=== PATIENT | female | born 1960 | race Caucasian/White ===

== ENCOUNTER 2016-10-15 15:36 | Emergency (ER) | payer MEDICARE, OTHER ==
--- NOTE | 2016-10-15 16:56 | ED Physician Documentation ---
Lower Extremity Injury - HISTORIAN Historian: patient - HPI Stated Complaint: Right Knee Pain s/p Fall Chief Complaint: Lower Extremity Injury Onset: days ago (10/06/16 - fall) Context: fall Modifying Factors:: pain on movement - ROS CONST: no problems CVS/RESP: none GI/: denies: nausea, vomiting MS/SKIN/LYMPH: none NEURO: denies: headache - PAST HX Past History: cardiac (HTN), diabetes Type 2, other (depression, HLD, anxiety, COPD, uses O2, morbid obesity) Allergies/Adverse Reactions: Allergies Allergy/AdvReac Type Severity Reaction Status Date / Time levofloxacin [From Levaquin] Allergy Verified 02/03/16 18:57 Home Medications: Ambulatory Orders Medication Instructions Recorded Escitalopram Oxalate [Lexapro] 20 mg PO D 05/07/12 Furosemide [Furosemide] 80 mg PO BID 05/07/12 Insulin Glargine,Hum.rec.anlog 45 units SQ HS 05/07/12 [Lantus] Montelukast Sodium [Singulair] 10 mg PO HS 05/07/12 Roflumilast [Daliresp] 1 tab PO D 05/07/12 Simvastatin [Simvastatin] 40 mg PO HS 05/07/12 Tolterodine Tartrate 1 mg PO BID 05/07/12 clonazePAM [Clonazepam] 1 mg PO HS 05/07/12 predniSONE [Prednisone] 10 mg PO D 05/07/12 Spironolactone [Aldactone] 50 mg PO BID 11/10/12 Insulin Aspart [Novolog Flexpen] 50 unit SQ TID 09/20/15 Levalbuterol HCl [Xopenex] 1.25 mg NEB QID PRN 09/20/15 Ipratropium/Albuterol Sulfate 3 ml NEB QID 10/15/16 [Duoneb] Ketorolac Tromethamine [Toradol] 10 mg PO TID #15 tablet 10/15/16 Umeclidinium Brm/Vilanterol Tr 1 each IH DAILY 10/15/16 [Anoro Ellipta 62.5-25 Mcg INH] - SOCIAL HX Smoking History: non-smoker - FAMILY HX Family History: denies: none - VITAL SIGNS Vital Signs: Vital Signs Temp Pulse Resp BP Pulse Ox 97 F L 105 H 20 144/101 97 10/15/16 15:40 10/15/16 15:40 10/15/16 15:40 10/15/16 15:40 10/15/16 15:40 - REVIEWED ASSESSMENTS Nursing Assessment Reviewed: Yes Vitals Reviewed: Yes Progress - Progress Progress: Patient with morbid obesity. Will try 5 days of NSAIDs. Instructed to follow up with PCP or ortho if pain persists or does not improve. Cast on right wrist from fall. ED Results Lab/Radiology - Orders Orders: ED Orders Category Date Time Status Rasheed Wrap Affected Extremity 1T Care 10/15/16 17:13 Active KNEE 3 VIEWS [RAD] Stat Exams 10/15/16 15:53 Taken Ketorolac Tromethamine [Toradol] Med 10/15/16 16:45 Discontinued 60 mg IM NOW ONE Lower Extremities Injury Phy - Physical Exam General Appearance: moderate distress Knees: right: pain, soft tissue tenderness, other (morbid obesity, sitting in wheelchair; will not walk due to pain), left: non-tender, normal inspection, N/A : swelling (no edema) Ankle: bilateral: non-tender, normal inspection, normal range of motion, no evidence of injury Ligaments: No: pain on anterior drawer, laxity on anterior drawer, laxity on posterior drawe, laxity on medial stress Gait: unable to bear weight Neuro/Vascular/Tendon: no vascular compromise, motor nml, sensation nml, ROM nml Discharge Clincal Impression: Strain of right knee Qualifiers: Encounter type: initial encounter Qualified Code(s): S86.911A - Strain of unspecified muscle(s) and tendon(s) at lower leg level, right leg, initial encounter Prescriptions: Ketorolac Tromethamine [Toradol] 10 mg PO TID #15 tablet Referrals: Poonam Hare, PRN [Primary Care Provider] - 2 Days Additional Instructions: Rest ice elevation Follow up with PCP or ortho if no improvements. Home Medications: Ambulatory Orders Escitalopram Oxalate [Lexapro] 20 mg PO D 05/07/12 Furosemide [Furosemide] 80 mg PO BID 05/07/12 Insulin Glargine,Hum.rec.anlog [Lantus] 45 units SQ HS 05/07/12 Montelukast Sodium [Singulair] 10 mg PO HS 05/07/12 Roflumilast [Daliresp] 1 tab PO D 05/07/12 Simvastatin [Simvastatin] 40 mg PO HS 05/07/12 Tolterodine Tartrate 1 mg PO BID 05/07/12 clonazePAM [Clonazepam] 1 mg PO HS 05/07/12 predniSONE [Prednisone] 10 mg PO D 05/07/12 Spironolactone [Aldactone] 50 mg PO BID 11/10/12 Insulin Aspart [Novolog Flexpen] 50 unit SQ TID 09/20/15 Levalbuterol HCl [Xopenex] 1.25 mg NEB QID PRN 09/20/15 Ipratropium/Albuterol Sulfate [Duoneb] 3 ml NEB QID 10/15/16 Ketorolac Tromethamine [Toradol] 10 mg PO TID #15 tablet 10/15/16 Umeclidinium Brm/Vilanterol Tr [Anoro Ellipta 62.5-25 Mcg INH] 1 each IH DAILY 10/15/16 Condition: Stable Disposition: 01 HOME, SELF-CARE Decision to Admit: NO Decision Time: 17:31
[2016-10-15] MEDS: KETOROLAC TROMETHAMINE 60 MG/2 ML VIAL IM ONE (17:22)
[2016-10-15] MEDS ORDERED: MUPIROCIN 2% OINT 22GM TUBE TP ONE (17:38)
[2016-10-15 17:39] VITALS: BP 138/98
--- NOTE | 2016-10-15 18:55 | Diagnostic Imaging Report ---
TREVA STERLING (DIRECTOR OF CONSUMER AFFAIRS) - ER [facility] [address] [facility].[address] [address] Report Submission Date: Oct 15, 2016 4:55:35 PM CDT Patient Study Name: ZHANG RUEDA Date: Oct 15, 2016 4:21:57 PM CDT Modality Type: CR Gender: F Description: LOWER EXTREMITY : 56 Institution: [facility] Physician: TREVA STERLING ([place]) - ER Examination: Plain film knee History: Knee discomfort Findings: 3 views of the knee demonstrates normal cortical margins. Artifactual lucency projecting over the proximal tibia. No fracture. No dislocation. Medial joint space narrowing and osteophyte formation. No joint effusion. No soft tissue irregularity. Impression: Medial degenerative changes. No acute osseous abnormality. If suspect soft tissue abnormality/injury, consider obtaining MRI Electronically signed on Oct 15, 2016 4:55:35 PM CDT by: Claudio BROWNING
== END 2016-10-15 17:35 | disposition home or self-care (01) ==
LOC: ED 15:36
DX: S86.911A Strain of unspecified muscle(s) and tendon(s) at lower leg level, right leg, initial encounter (principal); X58.XXXA Exposure to other specified factors, initial encounter; Y93.9 Activity, unspecified; Y99.9 Unspecified external cause status
CPT/HCPCS: 73562; J1885; 96372; 99283

== ENCOUNTER 2017-03-20 19:50 | Emergency (ER) | payer MEDICARE, OTHER ==
--- NOTE | 2017-03-20 20:25 | ED Physician Documentation ---
Syncope/Near Syncope - HISTORIAN Historian: patient, child - HPI Stated Complaint: low blood sugar Chief Complaint: Syncope Additional Information: pt sitting at home near syncope-later found fsbs 60s-ate chocolate candy then better. had recently inc lentus insulin from 60 to 70 at hs Witnessed: Yes Witnessed By: family Position at Time of Episode: sitting Symptoms Prior to Episode: light-headed, visual disturbance Character of Events(s): became unresponsive Symptoms after Event: denies: confused after event, incontinent of urine, incontinent of stool Location of Injury: none Associated Symptoms: feels back to normal Further Comments: yes (ecg by ems=ok fsbs ems = 60 here 79) - ROS CONST: denies: recent illness EYES/ENT: none NEURO/PSYCH: depression ( 1 yr ago). denies: confusion - PAST HX Cardiac Disease: none Other History: diabetes Type 1 (chf copd hi chol) Surgeries/Procedures: other (card cath cataracts exp for uterine hemorrhage) Allergies/Adverse Reactions: Allergies Allergy/AdvReac Type Severity Reaction Status Date / Time levofloxacin [From Levaquin] Allergy Verified 03/20/17 20:14 Home Medications: Ambulatory Orders Medication Instructions Recorded Escitalopram Oxalate [Lexapro] 20 mg PO D 05/07/12 Furosemide [Furosemide] 80 mg PO BID 05/07/12 Insulin Glargine,Hum.rec.anlog 60 units SQ HS 05/07/12 [Lantus] Roflumilast [Daliresp] 1 tab PO D 05/07/12 Simvastatin [Simvastatin] 40 mg PO HS 05/07/12 Tolterodine Tartrate 1 mg PO BID 05/07/12 clonazePAM [Clonazepam] 1 mg PO HS 05/07/12 predniSONE [Prednisone] 10 mg PO D 05/07/12 Spironolactone [Aldactone] 50 mg PO BID 11/10/12 Insulin Aspart [Novolog Flexpen] 50 unit SQ TID 09/20/15 Levalbuterol HCl [Xopenex] 1.25 mg NEB QID PRN 09/20/15 Ipratropium/Albuterol Sulfate 3 ml NEB QID 10/15/16 [Duoneb] Umeclidinium Brm/Vilanterol Tr 1 each IH DAILY 10/15/16 [Anoro Ellipta 62.5-25 Mcg INH] - SOCIAL HX Smoking History: non-smoker Alcohol Use: none Drug Use: none - FAMILY HX Family History: none ( 1 yr ago pt very depressed since dthen no desire to live xc children) - VITAL SIGNS Vital Signs: Vital Signs Temp Pulse Resp BP Pulse Ox 98.2 F 97 H 20 138/72 98 03/20/17 19:50 03/20/17 19:50 03/20/17 19:50 03/20/17 19:50 03/20/17 19:50 - REVIEWED ASSESSMENTS Nursing Assessment Reviewed: Yes Vitals Reviewed: Yes ED Results Lab/Radiology - Lab Results Lab Results: Lab Results 03/20/17 03/20/17 20:30 20:30 WBC 17.10 K/ul H K/ul (4.00-12.00) RBC 5.07 M/ul M/ul (3.90-5.20) Hgb 15.1 g/dL g/dL (12.0-16.0) Hct 46.9 % H % (34.5-46.5) MCV 92.4 fl fl (80.0-100.0) MCH 29.9 pg pg (28.0-34.0) MCHC 32.3 g/dL g/dL (30.0-36.0) RDW 13.4 % % (11.3-14.3) Plt Count 336 K/mm3 K/mm3 (130-400) Neut % (Auto) 79.9 % H % (39.0-79.0) Lymph % (Auto) 13.2 % L % (16.0-50.0) [place] % (Auto) 2.7 % % (0.0-11.0) Eos % (Auto) 2.8 % % (0.0-6.8) Baso % (Auto) 0.7 (0.0-1.5) Neut # (Auto) 13.6 # k/uL H # k/uL (1.4-7.7) Lymph # (Auto) 2.2 # k/uL # k/uL (0.6-4.0) [place] # (Auto) 0.5 # k/uL # k/uL (0.0-0.9) Eos # (Auto) 0.5 # k/uL # k/uL (0.0-0.6) Baso # (Auto) 0.1 # k/uL # k/uL (0.0-0.5) Reactive Lymphs % 0.7 % % (0.0-5.0) Reactive Lymphs # 0.1 # k/uL # k/uL (0.0-0.8) Sodium 142 mmol/L mmol/L (136-145) Potassium 3.8 mmol/L mmol/L (3.5-5.1) Chloride 97 mmol/L L mmol/L (98-107) Carbon Dioxide 31 mmol/L H mmol/L (22-30) BUN 16 mg/dL mg/dL (7-17) Creatinine 0.80 mg/dL mg/dL (0.52-1.04) Estimated Creat Clear 209 Est GFR ( Amer) > 60 (60 - ) Est GFR (Non-Af Amer) > 60 (60 - ) Glucose 137 mg/dL H mg/dL (74-106) Calcium 9.9 mg/dL mg/dL (8.4-10.2) Total Bilirubin 0.3 mg/dL mg/dL (0.2-1.3) AST 16 U/L U/L (15-46) ALT 25 U/L U/L (13-69) Alkaline Phosphatase 78 U/L U/L (38-126) Total Protein 7.4 g/dL g/dL (6.3-8.2) Albumin 3.9 g/dL g/dL (3.5-5.0) - Orders Orders: ED Orders Category Date Time Status CBC/PLATELET/DIFF Routine Lab 03/20/17 20:30 Completed CMP Routine Lab 03/20/17 20:30 Completed URINALYSIS Routine Lab 03/20/17 Ordered Chem Sticks Med 03/20/17 20:19 Ordered 1 each MC CHEMQ PRN Syncope Physical Exam - Physical Exam General Appearance: mild distress EENT: nml eye inspection Neck/Back: neck supple, no carotid bruit Respiratory: no resp distress, breath sounds normal CVS: reg rate & rhythm, heart sounds normal Abdomen: non-tender Skin: warm/dry, normal color. No: cyanosis, diaphoresis, jaundice, mottled Extremities: non-tender, normal range of motion - Neuro/Psych Higher Functions: alert, oriented x3 Cranial Nerves: denies: pronator drift Sensorimotor: nml motor response, nml sensory response Discharge Clincal Impression: insulin induced hypoglycemia, obesity-depression, chronic back pain Referrals: Poonam Hare PRN [Primary Care Provider] - 2 Days Condition: Good Disposition: 01 HOME, SELF-CARE Decision to Admit: NO Decision Time: 21:36
[2017-03-20 20:38] LABS: BASOPHILS % 0.7 (0.0-1.5); EOSINOPHILS % 2.8 % (0.0-6.8); MEAN CORPUSCULAR HEMOGLOBIN 29.9 pg (28.0-34.0); MEAN CORPUSCULAR VOLUME 92.4 fl (80.0-100.0); MONOCYTES % 2.7 % (0.0-11.0); NEUTROPHILS # 13.6 # k/uL (1.4-7.7)
[2017-03-20 20:51] LABS: eGFR (African) > 60; eGFR (Non-African) > 60
[2017-03-20 21:37] VITALS: BP 132/86
== END 2017-03-20 21:30 | disposition home or self-care (01) ==
LOC: ED 19:50
DX: E11.649 Type 2 diabetes mellitus with hypoglycemia without coma (principal); E66.9 Obesity, unspecified; F32.89 Other specified depressive episodes; M54.9 Dorsalgia, unspecified
CPT/HCPCS: 80053; 85025; 99282

== ENCOUNTER 2017-06-15 15:36 | Emergency (ER) | payer MEDICARE, OTHER ==
--- NOTE | 2017-06-15 15:46 | ED Physician Documentation ---
Lower Extremity Injury - HISTORIAN Historian: patient - HPI Chief Complaint: Lower Extremity Injury Additional Information: 56yo white female who states that she fell off a step to an exam table at [facility] and felt that her left knee isabella medial. Had some swelling and pain and got some better. Yesterday the same type of injury occured when she was trying to get up out of wheelchair. No she is having more pain. It has not given away on her. No previous injury noted. Modifying Factors:: pain on movement - ROS CONST: no problems - PAST HX Past History: diabetes Type 2, other (RA, COPD, CHF, Hyperlipidemia, ) Immunizations: referred to PCP Allergies/Adverse Reactions: Allergies Allergy/AdvReac Type Severity Reaction Status Date / Time levofloxacin [From Levaquin] Allergy Verified 06/25/17 00:24 Home Medications: Ambulatory Orders Medication Instructions Recorded Escitalopram Oxalate [Lexapro] 20 mg PO D 05/07/12 Furosemide [Furosemide] 80 mg PO BID 05/07/12 Insulin Glargine,Hum.rec.anlog 60 units SQ HS 05/07/12 [Lantus] Simvastatin [Simvastatin] 40 mg PO HS 05/07/12 Tolterodine Tartrate 1 mg PO BID 05/07/12 clonazePAM [Clonazepam] 1 mg PO HS 05/07/12 predniSONE [Prednisone] 10 mg PO D 05/07/12 Spironolactone [Aldactone] 50 mg PO BID 11/10/12 Insulin Aspart [Novolog Flexpen] 50 unit SQ TID 09/20/15 Levalbuterol HCl [Xopenex] 1.25 mg NEB QID PRN 09/20/15 Ipratropium/Albuterol Sulfate 3 ml NEB QID 10/15/16 [Duoneb] Meloxicam [Mobic] 7.5 mg PO BID PRN #20 tablet 06/15/17 Montelukast Sodium [Singulair] 1 tab PO HS 06/15/17 Azithromycin 500 mg PO D #4 tablet 06/25/17 Prednisone 10 mg PO TID #30 tablet 06/25/17 - SOCIAL HX Smoking History: quit greater than 1 year (2000) Alcohol Use: other (quit in ) Drug Use: none - FAMILY HX Family History: other (DM) - VITAL SIGNS Vital Signs: Vital Signs Temp Pulse Resp BP Pulse Ox 97.7 F 100 H 16 115/66 97 06/15/17 15:40 06/15/17 15:40 06/15/17 15:40 06/15/17 15:40 06/15/17 15:40 - REVIEWED ASSESSMENTS Nursing Assessment Reviewed: Yes Vitals Reviewed: Yes ED Results Lab/Radiology - Radiology Radiology Impressions: Examination: Plain film left tibia/fibula History: PAIN AFTER FALL (Hx) Comparison exams: None available Findings: 4 views of the tibia fibula demonstrates osteopenia. Articular degenerative changes. Old fracture deformity distal fibula. No evidence for acute fracture line. No soft tissue abnormality. Impression: Osteopenia and degenerative changes. No acute appearing osseous abnormality. Examination: Plain film left knee History: PAIN AFTER FALL (Hx) Findings: 3 views of the left knee demonstrates osteopenia. Patellar and articular spurring. Medial joint space narrowing. No fracture. No dislocation. No joint effusion. No posterior soft tissue irregularity. Impression: Articular degenerative changes. No acute appearing osseous abnormality - Orders Orders: ED Orders Category Date Time Status BILAT TIB/FIB 2 VIEW [RAD] Routine Exams 06/15/17 Ordered KNEE 3 VIEWS [RAD] Stat Exams 06/15/17 Ordered Ketorolac Tromethamine [Toradol] Med 06/15/17 16:00 Discontinued 60 mg IM NOW ONE Lower Extremities Injury Phy - Physical Exam General Appearance: alert Legs: right: non-tender, normal inspection, normal range of motion, no evidence of injury, left: soft tissue tenderness (medial proximal ), N/A: deformity (none ), ecchymosis (none) Knees: right: non-tender, normal inspection, normal range of motion, no evidence of injury, left: joint effusion (mild), pain, soft tissue tenderness ( anterior/inferior knee area), swelling, N/A: ecchymosis (none) Ankle: bilateral: non-tender, normal inspection, normal range of motion, no evidence of injury Ligaments: pain on medial stress. No: laxity on medial stress Gait: limited by pain Neuro/Vascular/Tendon: no vascular compromise, motor nml, sensation nml Resp/CVS: chest non-tender, breath sounds nml, heart sounds nml, no resp. distress, lungs clear, reg. rate & rhythm. No: wheezes, rales, rhonchi Abdomen: non-tender Discharge Clincal Impression: Strain of knee and leg, left Qualifiers: Encounter type: initial encounter Qualified Code(s): S86.912A - Strain of unspecified muscle(s) and tendon(s) at lower leg level, left leg, initial encounter Prescriptions: Meloxicam [Mobic] 7.5 mg PO BID PRN #20 tablet PRN Reason: Pain Referrals: Poonam Hare, TEJAS [Primary Care Provider] - 2 Days Additional Instructions: Wear straight knee immobilizer for support. Take Mobic 7.5 mg twice a day with food. Try using a cool compress tothe knee. Keep ortho appointment as scheduled. Condition: Stable Disposition: 01 HOME, SELF-CARE Decision to Admit: NO Date of Decison to Admit: 06/15/17 Decision Time: 17:19
[2017-06-15 15:48] VITALS: BP 115/66
[2017-06-15] MEDS ORDERED: KETOROLAC TROMETHAMINE 60 MG/2 ML VIAL IM ONE (16:00)
--- NOTE | 2017-06-15 17:30 | Diagnostic Imaging Report ---
PRADIP SILVERIO [facility] [address] [facility].[address] [address] Report Submission Date: Jun 15, 2017 4:58:26 PM CDT Patient Study Name: ZHANG RUEDA Date: Jun 15, 2017 4:11:50 PM CDT Modality Type: DX Gender: F Description: LOWER EXTREMITY : 56 Institution: [facility] Physician: PRADIP SILVERIO Examination: Plain film left tibia/fibula History: PAIN AFTER FALL (Hx) Comparison exams: None available Findings: 4 views of the tibia fibula demonstrates osteopenia. Articular degenerative changes. Old fracture deformity distal fibula. No evidence for acute fracture line. No soft tissue abnormality. Impression: Osteopenia and degenerative changes. No acute appearing osseous abnormality. Electronically signed on Jun 15, 2017 4:58:26 PM CDT by: Claudio BROWNING
--- NOTE | 2017-06-15 17:31 | Diagnostic Imaging Report ---
PRADIP SILVERIO [facility] [address] [facility].[address] [address] Report Submission Date: Jun 15, 2017 4:57:03 PM CDT Patient Study Name: ZHANG RUEDA Date: Jun 15, 2017 3:59:44 PM CDT Modality Type: DX Gender: F Description: LOWER EXTREMITY : 56 Institution: [facility] Physician: PRADIP SILVERIO Examination: Plain film left knee History: PAIN AFTER FALL (Hx) Findings: 3 views of the left knee demonstrates osteopenia. Patellar and articular spurring. Medial joint space narrowing. No fracture. No dislocation. No joint effusion. No posterior soft tissue irregularity. Impression: Articular degenerative changes. No acute appearing osseous abnormality Electronically signed on Jun 15, 2017 4:57:03 PM CDT by: Claudio BROWNING
== END 2017-06-15 17:28 | disposition home or self-care (01) ==
LOC: ED 15:36
DX: S86.912A Strain of unspecified muscle(s) and tendon(s) at lower leg level, left leg, initial encounter (principal); W08.XXXA Fall from other furniture, initial encounter; Y93.89 Activity, other specified; Y92.531 Health care provider office as the place of occurrence of the external cause
CPT/HCPCS: 73562; 73590; J1885; 96372; 99283

== ENCOUNTER 2017-06-25 00:01 | Emergency (ER) | payer MEDICARE, OTHER ==
[2017-06-25] MEDS: IPRATROPIUM/ALBUTEROL SULFATE 3 ML AMPUL.NEB NEB ONE ×2 (00:25→01:45)
[2017-06-25 00:43] LABS: BASOPHILS % 0.3 (0.0-1.5); EOSINOPHILS % 0.2 % (0.0-6.8); MEAN CORPUSCULAR HEMOGLOBIN 29.7 pg (28.0-34.0); MEAN CORPUSCULAR VOLUME 93.9 fl (80.0-100.0); MONOCYTES % 4.7 % (0.0-11.0); NEUTROPHILS # 8.4 # k/uL (1.4-7.7)
[2017-06-25 01:05] LABS: eGFR (African) > 60; eGFR (Non-African) > 60
--- NOTE | 2017-06-25 01:18 | Diagnostic Imaging Report ---
URI MO [facility] [address] [facility].[address] [address] Report Submission Date: Jun 25, 2017 1:14:12 AM CDT Patient Study Name: ZHANG RUEDA Date: Jun 25, 2017 12:50:23 AM CDT Modality Type: DX Gender: F Description: CHEST : 56 Institution: [facility] Physician: URI MO The chest 2 views History: Shortness of breath Findings: The lungs are hyperinflated. Obesity is observed. There is no infiltrate or pleural effusion. The cardiac silhouette is mildly enlarged. Impression: 1. Hyperinflation. 2. Obesity. Electronically signed on Jun 25, 2017 1:14:12 AM CDT by: Jean Pierre BROWNING
[2017-06-25] MEDS: AZITHROMYCIN 250 MG TABLET PO ONE (01:45)
--- NOTE | 2017-06-25 01:50 | ED Physician Documentation ---
Asthma - HISTORIAN Historian: patient, paramedics - HPI Stated Complaint: SOA/FEVER Chief Complaint: Dyspnea Additional Information: [facility] rec neb no other meds w/dx allergies. cond persists severe at times coughs up xs dark greenish thick sputum-also had fever Onset: days ago (several-xs cigs smoked in house w/prts-pts children has same) Duration: continues in ED, worse Initiating Event: upper respiratory illness Associated Symptoms:: fever, trouble breathing, shortness of breath, hurts to breath, productive cough Current Asthma Therapy: albuterol inhaler Further Comments: no - ROS CONST: recent illness EYES/ENT: sore throat (from cough). denies: eye itching CVS: denies: heart racing GI/: denies: abdominal pain, problems urinating, vomiting, nausea MS/SKIN/LYMPH: denies: ankle swelling, leg pain NEURO/PSYCH: headache, dizziness, light-headedness, anxiety - PAST HX Asthma: frequent attacks Lung Disease: COPD, bronchitis Other History: denies: cardiac disease, CHF, CAD Surgeries/Procedures: other (abd exp;elizabeth w/bleeding dt intra abd ) Allergies/Adverse Reactions: Allergies Allergy/AdvReac Type Severity Reaction Status Date / Time levofloxacin [From Levaquin] Allergy Verified 06/25/17 00:24 Home Medications: Ambulatory Orders Medication Instructions Recorded Escitalopram Oxalate [Lexapro] 20 mg PO D 05/07/12 Furosemide [Furosemide] 80 mg PO BID 05/07/12 Insulin Glargine,Hum.rec.anlog 60 units SQ HS 05/07/12 [Lantus] Simvastatin [Simvastatin] 40 mg PO HS 05/07/12 Tolterodine Tartrate 1 mg PO BID 05/07/12 clonazePAM [Clonazepam] 1 mg PO HS 05/07/12 predniSONE [Prednisone] 10 mg PO D 05/07/12 Spironolactone [Aldactone] 50 mg PO BID 11/10/12 Insulin Aspart [Novolog Flexpen] 50 unit SQ TID 09/20/15 Levalbuterol HCl [Xopenex] 1.25 mg NEB QID PRN 09/20/15 Ipratropium/Albuterol Sulfate 3 ml NEB QID 10/15/16 [Duoneb] Meloxicam [Mobic] 7.5 mg PO BID PRN #20 tablet 06/15/17 Montelukast Sodium [Singulair] 1 tab PO HS 06/15/17 Azithromycin 500 mg PO D #4 tablet 06/25/17 Prednisone 10 mg PO TID #30 tablet 06/25/17 - SOCIAL HX Smoking History: non-smoker Alcohol Use: none Drug Use: none - FAMILY HX Family History: emphysema - VITAL SIGNS Vital Signs: Vital Signs Temp Pulse Resp BP Pulse Ox 99.3 F 108 H 19 160/63 96 06/25/17 00:01 06/25/17 00:01 06/25/17 00:01 06/25/17 00:01 06/25/17 01:17 - REVIEWED ASSESSMENTS Nursing Assessment Reviewed: Yes Vitals Reviewed: Yes ED Results Lab/Radiology - Lab Results Lab Results: Lab Results 06/25/17 06/25/17 00:39 00:39 WBC 11.60 K/ul K/ul (4.00-12.00) RBC 4.48 M/ul M/ul (3.90-5.20) Hgb 13.3 g/dL g/dL (12.0-16.0) Hct 42.1 % % (34.5-46.5) MCV 93.9 fl fl (80.0-100.0) MCH 29.7 pg pg (28.0-34.0) MCHC 31.6 g/dL g/dL (30.0-36.0) RDW 13.4 % % (11.3-14.3) Plt Count 250 K/mm3 K/mm3 (130-400) Neut % (Auto) 72.8 % % (39.0-79.0) Lymph % (Auto) 21.3 % % (16.0-50.0) [place] % (Auto) 4.7 % % (0.0-11.0) Eos % (Auto) 0.2 % % (0.0-6.8) Baso % (Auto) 0.3 (0.0-1.5) Neut # (Auto) 8.4 # k/uL H # k/uL (1.4-7.7) Lymph # (Auto) 2.5 # k/uL # k/uL (0.6-4.0) [place] # (Auto) 0.5 # k/uL # k/uL (0.0-0.9) Eos # (Auto) 0.0 # k/uL # k/uL (0.0-0.6) Baso # (Auto) 0.0 # k/uL # k/uL (0.0-0.5) Reactive Lymphs % 0.7 % % (0.0-5.0) Reactive Lymphs # 0.1 # k/uL # k/uL (0.0-0.8) Sodium 140 mmol/L mmol/L (136-145) Potassium 3.3 mmol/L L mmol/L (3.5-5.1) Chloride 96 mmol/L L mmol/L (98-107) Carbon Dioxide 28 mmol/L mmol/L (22-30) BUN 18 mg/dL H mg/dL (7-17) Creatinine 1.10 mg/dL H mg/dL (0.52-1.04) Estimated Creat Clear 137 Est GFR ( Amer) > 60 (60 - ) Est GFR (Non-Af Amer) > 60 (60 - ) Glucose 281 mg/dL H mg/dL (74-106) Calcium 9.8 mg/dL mg/dL (8.4-10.2) Total Bilirubin 0.6 mg/dL mg/dL (0.2-1.3) AST 20 U/L U/L (15-46) ALT 23 U/L U/L (13-69) Alkaline Phosphatase 86 U/L U/L (38-126) Total Protein 6.9 g/dL g/dL (6.3-8.2) Albumin 3.8 g/dL g/dL (3.5-5.0) - Radiology Radiology Impressions: chest reveals hyperinflation other lab satis-pt better w/ duoneb and iv prednisone - Orders Orders: ED Orders Category Date Time Status Assess pulse oximetry Q1H Care 06/25/17 00:[address] IV Lock 1T Care 06/25/17 00:18 Active CHEST 2VIEW [RAD] Stat Exams 06/25/17 Completed CBC/PLATELET/DIFF Routine Lab 06/25/17 00:39 Completed CMP Routine Lab 06/25/17 00:39 Completed Azithromycin [Zithromax] Med 06/25/17 01:42 Discontinued 500 mg PO NOW ONE Ipratropium/Albuterol Sulfate [Duoneb] Med 06/25/17 00:17 Discontinued 3 ml NEB NOW ONE Ipratropium/Albuterol Sulfate [Duoneb] Med 06/25/17 01:42 Discontinued 3 ml NEB NOW ONE methylPREDNISolone SOD SUCC [Solu-MEDROL] 125 mg Med 06/25/17 00:22 Discontinued 0.9 % Sodium Chloride [Sodium Chloride] 100 ml IV NOW Oxygen Daily Oxygen 06/25/17 00:30 Ordered EKG WITH COMPARISON Stat Ther 06/25/17 Ordered Asthma Physical Exam - EXAM General Appearance: moderate distress EENT: eye inspection normal Neck: nml inspection. No: lymphadenopathy Respiratory: no resp. distress, speaks full sentences, prolonged expirations, accessory muscle use, wheezes, rales, rhonchi, resp. fatigue. No: breath sounds nml, retractions CVS: reg rate & rhythm, heart sounds normal Abdomen: No: non-tender (tender only from persistent coughing) Skin: color nml, no rash. No: cyanosis, diaphoresis, pallor, ecchymosis Extremities: non-tender, normal range of motion Neuro/Psych: oriented x3, mood/affect nml Discharge Clincal Impression: acute exab bronchial asthma-copd, respiratory infection Prescriptions: Azithromycin 500 mg PO D #4 tablet Prednisone 10 mg PO TID #30 tablet Referrals: Poonam Hare, PRN [Primary Care Provider] - 2 Days Comments: home meds f/u soon w/pcp take azithro and pred op Disposition: 01 HOME, SELF-CARE Decision to Admit: NO (n) Decision Time: 02:02
[2017-06-25 03:22] VITALS: BP 147/58
== END 2017-06-25 03:10 | disposition home or self-care (01) ==
LOC: ED 00:01
DX: J45.901 Unspecified asthma with (acute) exacerbation (principal); J44.0 Chronic obstructive pulmonary disease with (acute) lower respiratory infection; J22 Unspecified acute lower respiratory infection
CPT/HCPCS: 71046; 80053; 85025; 93005; J2930; 94640; 96365; 99283; S1016

== ENCOUNTER 2018-03-29 09:54 | Outpatient (CLI) | payer MEDICARE, OTHER ==
--- NOTE | 2018-03-29 15:03 | Diagnostic Imaging Report ---
SWATHI CH (AINSLEY) - OP [facility] [address] [facility].[address] [address] Report Submission Date: Mar 29, 2018 10:43:52 AM [employer] Patient Study Name: ZHANG RUEDA Date: Mar 29, 2018 10:02:15 AM [employer] Modality Type: CR Gender: F Description: ABD COMPLETE : 56 Institution: [facility] Physician: SWATHI CH (AINSLEY) - OP Examination: Obstruction series History: UNABLE TO HAVE BOWEL MOVEMENT POST COLONOSCOPY 2 MONTHS. Findings: 4 views obtained of the abdomen. No abnormal dilation of the large or small bowel. Air and stool throughout the large bowel. No suspicious calcification projecting over the renal fossa or the lower pelvic region. Osseous structures demonstrate osteopenia and degenerative changes. Impression: Moderate large bowel stool - constipation. No obstruction. No suspicious calcifications by plain film sensitivity. Electronically signed on Mar 29, 2018 10:43:52 AM [employer] by: Claudio BROWNING
== END 2018-03-29 10:10 ==
LOC: RAD 09:54
PROVIDERS: ATTEND Nurse Practitioner Family
DX: K59.00 Constipation, unspecified (principal)
CPT/HCPCS: 74019

== ENCOUNTER 2018-12-21 13:01 | Outpatient (CLI) | payer MEDICARE, OTHER ==
[2018-12-21 13:58] LABS: eGFR (Non-African) > 60
[2018-12-21 14:27] LABS: SEGMENTED NEUTROPHILS % 90 % (39-79)
--- NOTE | 2018-12-22 13:15 | Diagnostic Imaging Report ---
[facility] [address] [place] [address] PATIENT: ZHANG RUEDA : 1960 DATE OF EXAM: 12/21/2018 PATIENT MRN.: [id number] REF. PHYSICIAN: Florian Lopez EXAM: DX-CHEST 2VIEW Page 1 HISTORY: Preop, COPD. COMPARISON: None provided. CHEST RADIOGRAPH, FRONTAL AND LATERAL: Upper mediastinum: Not widened. Heart: No cardiomegaly. Lungs: Hyperinflation of COPD. No lobar infiltrate, pulmonary edema, pneumothorax or significant effusion. Skeleton: No acute findings. IMPRESSION: Hyperinflation of COPD, without acute infiltrate. Dr. Kemal BROWNING
== END 2018-12-21 13:06 ==
LOC: LAB 13:01
PROVIDERS: ATTEND Nurse Practitioner
DX: J44.9 Chronic obstructive pulmonary disease, unspecified (principal)
CPT/HCPCS: 36415; 36600; 71046; 80053; 82803; 85025